=== PATIENT | male | born 1930 | race Hispanic/Latino ===

== ENCOUNTER 2018-07-18 18:12 | Emergency (ER) | payer MEDICARE ==
[2018-07-18 19:21] LABS: BASO % 0.3 % (0.0-2.0); EOS % 0.3 % (0.0-4.0); HEMOGLOBIN 11.3 g/dL (12.0-18.0); LYMPH # 1.1 K/uL (1.0-4.3); LYMPH % 20.1 % (20.0-40.0); MEAN CELL VOLUME 91.4 fL (80.0-94.0); MEAN CORPUSCULAR HEMOGLOBIN 30.5 pg (27.0-31.0); MEAN CORPUSCULAR HGB CONC 33.4 g/dL (33.0-37.0); MEAN PLATELET VOLUME 7.1 fL (7.2-11.7); MONO # 0.6 K/uL (0.0-0.8); MONO % 10.2 % (0.0-10.0); NEUT % 69.1 % (50.0-75.0); RBC 3.7 Mil/uL (4.40-5.90); RED CELL DISTRIBUTION WIDTH 14.5 % (11.5-14.5); WHITE BLOOD COUNT 5.7 K/uL (4.8-10.8)
[2018-07-18 19:39] LABS: VENOUS BLOOD GAS BASE EXCESS -0.2 mmol/L (0.0-2.0); VENOUS BLOOD GAS PCO2 41 mmHg (40-60); VENOUS BLOOD GAS PO2 23 mm/Hg (30-55); VENOUS BLOOD PH 7.39 (7.32-7.43)
[2018-07-18 19:47] LABS: ACETAMINOPHEN < 10.0 ug/mL (10.0-30.0); SALICYLATE 18.6 mg/dL 1
[2018-07-18 19:50] LABS: ALB/GLOB RATIO 1.3 (1.0-2.1); ALBUMIN 3.7 g/dL (3.5-5.0); ALT/SGPT 19 U/L (21-72); AST/SGOT 27 U/L (17-59); BLOOD UREA NITROGEN 10 mg/dL (9-20); CALCIUM 8.9 mg/dl (8.6-10.4); GFR NON-AFRICAN AMERICAN > 60; LIPASE 21 U/L (23-300)
[2018-07-18 20:07] LABS: URINE BILIRUBIN NEGATIVE (NEGATIVE); URINE CLARITY Clear (Clear); URINE COLOR Straw (YELLOW); URINE GLUCOSE (UA) NORMAL (Normal); URINE LEUKOCYTE ESTERASE NEG Leu/uL (Negative); URINE PROTEIN NEGATIVE (NEGATIVE); URINE UROBILINOGEN NORMAL mg/dL (0.2-1.0)
[2018-07-18] MEDS ORDERED: Sodium Chloride 0.9% 1,000 ML IV ONE (20:10)
--- NOTE | 2018-07-18 20:12 | C.PDOC ---
History Of Present Illness 87 year old male presents to ED with complaint of diarrhea for the past week. Patient states that he has been taking aspirin and loperamide. Patient denies nausea, vomiting, fever, chills ,and diaphoresis. Caregivers feeds him bananas as is daily fruit Time Seen by Provider: 07/18/18 20:03 Chief Complaint (Nursing): Abdominal Pain History Per: Patient History/Exam Limitations: no limitations Onset/Duration Of Symptoms: Days (7) Current Symptoms Are (Timing): Still Present Associated Symptoms: Diarrhea. denies: Fever, Chills, Nausea, Vomiting Exacerbating Factors: None Alleviating Factors: None Past Medical History Reviewed: Historical Data, Nursing Documentation, Vital Signs Vital Signs: Last Vital Signs Temp 97.8 F 07/18/18 18:33 Pulse 80 07/18/18 19:51 Resp 18 07/18/18 19:51 BP 118/52 L 07/18/18 19:51 Pulse Ox 100 07/18/18 19:51 - Medical History PMH: No Chronic Diseases Surgical History: Hernia Repair Family History: States: Unknown Family Hx - Social History Hx Alcohol Use: No Hx Substance Use: No - Immunization History Hx Tetanus Toxoid Vaccination: No Hx Influenza Vaccination: No Review Of Systems Constitutional: Negative for: Fever, Chills, Weakness Gastrointestinal: Positive for: Diarrhea. Negative for: Nausea, Vomiting, Abdominal Pain Neurological: Negative for: Weakness, Numbness, Dizziness Physical Exam - Physical Exam Appears: Non-toxic, No Acute Distress, Other (elderly) Skin: Normal Color, Warm, Dry Head: Atraumatic, Normacephalic Neck: Normal ROM, Supple Chest: Symmetrical, No Deformity Cardiovascular: Rhythm Regular, No Murmur Respiratory: No Accessory Muscle Use Gastrointestinal/Abdominal: Soft, No Tenderness Rectal: Other (incontinence of liquid stool ) Neurological/Psych: Oriented x3, Normal Speech, Normal Cognition ED Course And Treatment - Laboratory Results Result Diagrams: 07/18/18 19:18 07/18/18 19:18 Lab Results: pO2 23 mm/Hg (30-55) L 07/18/18 19:36 VBG pH 7.39 (7.32-7.43) 07/18/18 19:36 VBG pCO2 41 mmHg (40-60) 07/18/18 19:36 VBG HCO3 23.2 mmol/L 07/18/18 19:36 VBG Total CO2 26.1 mmol/L (22-28) 07/18/18 19:36 VBG O2 Sat (Calc) 28.2 % (40-65) L 07/18/18 19:36 VBG Base Excess -0.2 mmol/L (0.0-2.0) L 07/18/18 19:36 VBG Potassium 3.7 mmol/L (3.6-5.2) 07/18/18 19:36 Sodium 127.0 mmol/l (132-148) L 07/18/18 19:36 Chloride 96.0 mmol/L (98-107) L 07/18/18 19:36 Glucose 84 mg/dl (75-110) 07/18/18 19:36 Lactate 1.2 mmol/L (0.7-2.1) 07/18/18 19:36 Total Bilirubin 0.2 mg/dL (0.2-1.3) 07/18/18 19:18 AST 27 U/L (17-59) 07/18/18 19:18 ALT 19 U/L (21-72) L 07/18/18 19:18 Alkaline Phosphatase 129 U/L (38-126) H 07/18/18 19:18 Total Protein 6.6 g/dL (6.3-8.3) 07/18/18 19:18 Albumin 3.7 g/dL (3.5-5.0) 07/18/18 19:18 Globulin 2.9 gm/dL (2.2-3.9) 07/18/18 19:18 Albumin/Globulin Ratio 1.3 (1.0-2.1) 07/18/18 19:18 Lipase 21 U/L (23-300) L 07/18/18 19:18 Lab Interpretation: Normal (ua neg. ASA level 18, repeat 16 (decreasing and in normal range)) O2 Sat by Pulse Oximetry: 100 (in RA) - Radiology CXR: Interpreted by Me CXR Interpretation: Yes: No Acute Disease - Other Rad abd x 2 X-Ray: Interpreted by Me (large stool rectum c/w rectal impaction) Progress Note: VBG, CMP, CBC, and UA ordered for patient. Obstructive series ordered for patient. Patient given IV fluids. Reevaluation Time: 23:43 Reassessment Condition: Improved Procedure: Blank - Time Out Time Out: Site verified, Patient ID confirmed - Consent obtained: Consent obtained: Verbal - Performed by: Performed by:: Attending physician - Anesthetic Technique Anesthetic Technique: Topical - Topical: Local/Regional Anesthetic:: Other (urojet) - Patient Position Patient Position:: Left lateral decubitus - Description Discription of Procedure: 07/18/18 (Rectal disimpaction performed, urojet inje cted into rectum, disimpacted large amount of shara stool, fleets enema allowed to dwell in trendelenburg position with satisfactory bowel movement.) - Result Result: Successful - Post-Procedure Post-procedure:: Vital signs stable, Other (Normal bowel movement.) - Patient Tolerated Procedure Patient Tolerated Procedure:: Well Medical Decision Making Medical Decision Making: constipation and rectal impaction due to abuse of loperamide and bananas now sp rectal disempaction with satisfactory results continue laxatives @ home minor ASA level elevation repeat dropping LOW susp of asa tox Disposition Doctor Will See Patient In The: Office Counseled Patient/Family Regarding: Studies Performed, Diagnosis - Disposition Referrals: [facility] [Outside] [email or web address] [Outside] [facility] [Outside] Disposition: HOME/ ROUTINE Disposition Time: 23:45 Condition: GOOD Additional Instructions: drink laxative now and re-evaluate abdominal discomfort after 2-3 more bowel movements pt had rectal stool disempaction in the ED Avoid bananas- they are very constipating 1 banana per week otherwise 7 fresh fruits and vegetables per day for stool regularity a small salad counts as 2 vegetables occasional gentle laxatives as needed Avoid immodium: VERY constipating. Instructions: Constipation in Adults, Fecal Impaction Forms: [email or web address] (Portuguese) - Clinical Impression Clinical Impression: Abdominal bloating - Scribe Statement The provider has reviewed the documentation as recorded by the Scribe (Alyssa Haile) All medical record entries made by the Scribe were at my direction and personally dictated by me. I have reviewed the chart and agree that the record accurately reflects my personal performance of the history, physical exam, medical decision making, and the department course for this patient. I have also personally directed, reviewed, and agree with the discharge instructions and disposition.
[2018-07-18 20:19] LABS: URINE BLOOD TRACE (NEGATIVE)
[2018-07-18 20:21] LABS: BARBITURATES, UR NEGATIVE (NEGATIVE); BENZODIAZEPINES, UR NEGATIVE (NEGATIVE); OPIATES, UR NEGATIVE (NEGATIVE); PHENCYCLIDINE, UR NEGATIVE (NEGATIVE)
[2018-07-18] MEDS ORDERED: Sodium Chloride 0.9% 1,000 ML ONE (20:29)
[2018-07-18] MEDS ORDERED: Lidocaine 2% Jelly (Uro-Jet) ONE (22:18)
[2018-07-18 23:24] VITALS: BP 152/82; PULSE 87; TEMP 98.3
[2018-07-18 23:45] VITALS: O2SAT 100
[2018-07-18] MEDS ORDERED: Magnesium Citrate Oral SOL (300 ml) PO ONE (23:47)
[2018-07-19] MEDS ORDERED: Magnesium Citrate Oral SOL (300 ml) ONE (00:17)
[2018-07-19 00:55] VITALS: RESP 18
--- NOTE | 2018-07-19 11:16 | RAD ---
Date of service: 07/18/2018 PROCEDURE: Radiographs of the chest and abdomen (obstructive series) HISTORY: abd pain COMPARISON: No prior. TECHNIQUE: AP radiograph of the chest, with upright and supine radiographs of the abdomen. 3 views obtained. FINDINGS: CHEST: Lungs: Interstitial lung disease acuity/etiology unknown. There no studies. Cardiovascular: Normal size heart. No pulmonary vascular congestion. No aortic atherosclerotic calcification present Pleura: No pleural fluid. No pneumothorax. Other findings: None. ABDOMEN AND PELVIS: Bowel: Constipation without fecal impaction or obstruction. Free air: None. Bones: Unremarkable. Other findings: None. IMPRESSION: Constipation without fecal impaction or obstruction. Concordant results with the preliminary interpretation rendered by the emergency department physician procedure.
--- NOTE | 2018-07-19 18:36 | CARD ---
APPROVED REPORT Date of service: 07/18/2018 EKG Measurement Heart [id number] <Conclusion> Normal sinus rhythm Low voltage QRS Nonspecific ST abnormality Abnormal ECG
== END 2018-07-19 00:50 | disposition home or self-care (01) ==
LOC: C.ER 18:12
DX: R14.0 Abdominal distension (gaseous) (principal)
CPT/HCPCS: 74022; 80053; 81001; 82803; 83690; 84484; 85025; 87086; 93005; 99285; G0480; J7030